=== PATIENT | female | born 1970 | race Caucasian/White ===

== ENCOUNTER 2021-01-28 17:25 | Inpatient (IN) | payer OTHER ==
[~2021-01-28] VITALS: Ht 180.3 cm; Wt 89.8 kg
[2021-01-28 21:45] VITALS: BP 156/94
--- NOTE | 2021-01-28 22:00 | NUR ---
RECIEVED PT FROM [facility]. UPON ARRIVAL TO UNIT PT ALERT AND ORIENTED X4 , DATA BASE COMPLETED AND ASSESSMENT COMPLETED. DENIES CHEST PAIN OR SOA. 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 WILL MONITOR BLOOD PRESSURE AND WILL REPORT CHANGES.
[2021-01-29] VITALS: BP 130/62
[2021-01-29 05:07] VITALS: BP 132/70
[2021-01-29 05:34] LABS: HEMATOCRIT 39.4 % (37.0-47.0); HEMOGLOBIN 12.6 gm/dL (12.0-15.0); MCV 78.2 fL (80.0-100.0); RBC 5.04 mil/uL (4.20-5.00); RDW 15.3 % (10.5-14.5); WBC 16.2 thou/uL (4.0-11.0)
[2021-01-29 05:58] LABS: ANION GAP 12 mmol/L (7-16); BUN 16 mg/dL (7-18); CALCIUM 8.5 mg/dL (8.5-10.1); CHLORIDE 105 mmol/L (98-107); CHOLESTEROL 208 mg/dL (<200); CO2 23 mmol/L (21-32); GLUCOSE 203 mg/dL (74-106); HDL CHOLESTEROL 44 mg/dL (>40); LDL CHOLESTEROL 149 mg/dL (<100); POTASSIUM 3.8 mmol/L (3.5-5.1); SODIUM 140 mmol/L (136-145); TC:HDL 4.7 Ratio (Not establshd); TRIGLYCERIDE 75 mg/dL (<150); VLDL 15 mg/dL (<40)
[2021-01-29 07:30] VITALS: BP 137/74
[2021-01-29 11:55] VITALS: BP 120/66
[2021-01-29 12:30] VITALS: BP 141/75
--- NOTE | 2021-01-29 16:30 | NUR ---
PT ALERT AND ORIENTED TIMES FOUR. VSS, SR ON TELE. PT DENIES PAIN/SOA. PT TOLERATES MEDS AND MEALS. PT UP AB MIKE WITH STEADY GAIT. STRESS ECHO ORDERED FOR TOMORROW. PT AT BEDSIDE. WILL CONTINUE TO MONITOR.
[2021-01-29 18:51] LABS: URINE BILIRUBIN NEGATIVE (Negative); URINE BLOOD NEGATIVE (Negative); URINE CLARITY CLEAR; URINE COLOR YELLOW; URINE GLUCOSE-RANDOM* 3+ (Negative); URINE KETONES TRACE (Negative); URINE LEUKOCYTES-REFLEX NEGATIVE (Negative); URINE NITRITE-REFLEX NEGATIVE (Negative); URINE PROTEIN (DIPSTICK) NEGATIVE (Negative); URINE UROBILINOGEN 0.2 E.U./dl (0.2-1.0)
[2021-01-29 19:39] VITALS: BP 153/76
[2021-01-30 02:05] LABS: GLYCOHEMOGLOBIN (HGB A1C) 6.6 % (4.8-5.6)
[2021-01-30 04:02] VITALS: BP 168/96
[2021-01-30 07:47] VITALS: BP 151/97
[2021-01-30 08:07] LABS: HEMATOCRIT 40.6 % (37.0-47.0); HEMOGLOBIN 12.8 gm/dL (12.0-15.0); MCH 24.6 pg (26.0-34.0); MCHC 31.6 g/dL (28.0-37.0); MCV 77.9 fL (80.0-100.0); RBC 5.21 mil/uL (4.20-5.00); RDW 15.7 % (10.5-14.5)
[2021-01-30 08:26] LABS: CALCIUM 8.5 mg/dL (8.5-10.1); CREATININE 0.8 mg/dL (0.6-1.0); MAGNESIUM 2.3 mg/dL (1.8-2.4); POTASSIUM 3.8 mmol/L (3.5-5.1)
[2021-01-30 11:25] VITALS: BP 134/80
[2021-01-30 11:40] VITALS: BP 134/80
--- NOTE | 2021-01-30 12:11 | NUR ---
Met with patient who admits with CP. patient resides at home with family. 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 Patient does not have insurance. She resides in [facility]. She reports she does have a PCP for f/u care. Dago met with patient. Patient reports they are working on medicaid application.
--- NOTE | 2021-01-30 12:50 | EXE ---
[facility] [place] [address] STRESS ECHOCARDIOGRAM Name: WALI BARRIOS Room #: 206-P [facility] M.R.#: [id number] Admission: 01/28/21 Attend Phys: Boogie Brower MD Discharge: Date of : 68 Report #: [id number] THIS REPORT FOR: cc: FAM - No family physician/PCP FAM - No family physician/PCP Dangelo Sarabia MD ~ APPROVED REPORT Study performed: 01/30/2021 10:11:26 Exam: Stress Echocardiogram Indication: Dyspnea Patient Location: In-Patient Stress Nurse: Apryl Nichols RN Room #: 206 Status: routine Ht: 70 ft 0 in HR: 93 bpm BP: 158/96 mmHg Rhythm: NSR Medical History Cardiac Risk Factors: HTN, Smoking Exercise History: Physically active Procedure The patient underwent an Exercise Stress Test using the Jaime Protocol. Blood pressure, heart rate, and EKG were monitored. An Echocardiogram was performed by biometrics technician in four stages in quad fashion. At peak stress, four selected images were obtained and placed side by side with resting images for comparison. Stress Test Details Stress Test: Exercise stress testing was performed using a Jaime protocol. HR Resting HR: 93 bpm Max Heart Rate (APMHR): 168 bpm Max HR Achieved: 139 bpm Target HR (85% APMHR): 142 bpm % of APMHR: 82 Recovery HR: 99 bpm HR response to stress: Normal HR response to stress BP Resting BP: 158/96 mmHg [facility] [address] [place] [address] STRESS ECHOCARDIOGRAM Name: WALI BARRIOS Room #: 206-P [facility] IN M.R.#: [id number] Admission: 01/28/21 Attend Phys: Boogie Brower, Discharge: Date of : 68 Report #: [id number] Max BP: 170/86 mmHg Recovery BP: 130/76 mmHg BP response to stress: Normal blood pressure response to stress. ECG Resting ECG: Sinus Rhythm Stress ECG: Sinus Tachycardia ST Change: None Recovery ECG: Sinus Rhythm Recovery ST Change: None Clinical Reason for Termination: Maximal effort Exercise duration: 9 min sec Highest Stage Achieved: Stage 3: 3.4 mph at 14% grade. Exercise capacity: 10.4 METs Overall Exercise Capacity for Age: Good Stress ECG Conclusion 1. Subjectively negative for ischemia 2. Echocardiographically negative for ischemia 3. Satisfactory functional capacity 4. No exercise-induced arrhythmias Pre-Stress Echo The resting Echocardiogram showed normal left ventricular contractility with an estimated Ejection Fraction of about >55%. The resting echocardiogram demonstrated normal wall motion in all wall segments. Post-Stress Echo The stress Echocardiogram showed normal left ventricular contractility with an estimated Ejection Fraction of about 65-70%. Compared to rest, there were no stress-induced wall motion abnormalities. Conclusion Clinical Response: Non-ischemic Exercise Capacity: Average Stress ECG Response: Non-ischemic Stress Echo Images: Non-ischemic 1. Low ischemic risk study No prior study available for comparison. Other Information Study Quality: [facility] [address] [place] [address] STRESS ECHOCARDIOGRAM Name: WALI BARRIOS Room #: 206-P ADM IN M.R.#: [id number] Admission: 01/28/21 Attend Phys: Boogie rBower, Discharge: Date of : 68 Report #: [id number] <Conclusion> 1. Low ischemic risk study <ELECTRONICALLY SIGNED> By: Dangelo Sarabia MD 01/30/21 1250 125 1250 Dangelo Sarabia MD /INF
[2021-01-30 15:13] VITALS: BP 168/96
[2021-01-30 16:20] LABS: HEMATOCRIT 40.1 % (37.0-47.0); HEMOGLOBIN 12.9 gm/dL (12.0-15.0); MCH 25.3 pg (26.0-34.0); MCHC 32.1 g/dL (28.0-37.0); MCV 78.9 fL (80.0-100.0); PLATELET COUNT 330 thou/uL (150-400); RBC 5.07 mil/uL (4.20-5.00); RDW 15.6 % (10.5-14.5); WBC 21.7 thou/uL (4.0-11.0)
--- NOTE | 2021-01-30 16:39 | NUR ---
RM ASSUMED PT'S CARE AT 0700AM, PT IS A&OX4, PT'S VS ARE STABLE, PT HAS STRESS TEST DONE TODAY, PT GETS UP TO BATH ROOM BY HERSELF, PT DENIES CHEST PAIN AND SOB, RN HAS CALLED TO REPORT PT'S WBC 27 AT 08OOAM, PT REQUESTS TO GO HOME TODAY, RECHECK WBC 21.7 AT 1600PM, RN HAS CALLED DR TO REPORT LAB RESULT , WILL DC PT TO HOME TODAY.
[2021-01-30] MEDS ORDERED: LOPRESSOR50 PO (16:40)
[2021-01-30] MEDS ORDERED: NORVASC5 MG PO (16:40)
[2021-01-30 16:51] LABS: ABSOLUTE NEUTROPHILS 16.5 thou/uL (1.4-8.2)
[2021-01-30 17:04] VITALS: BP 168/96
--- NOTE | 2021-01-30 18:16 | NUR ---
PT AND PT'S FAMILY UNDERSTANDED DC TEACHING WELL , PT WAS GOING HOME WITH FAMNASIMA AT 1720PM.
== END 2021-01-30 17:26 | disposition home or self-care (01) | DRG 281 ==
LOC: 2N 17:25
PROVIDERS: Nurse Practitioner Family; ADMIT Internal Medicine; ATTEND Internal Medicine
DX: I21.4 Non-ST elevation (NSTEMI) myocardial infarction (principal); R04.2 Hemoptysis; I16.0 Hypertensive urgency; J44.9 Chronic obstructive pulmonary disease, unspecified; F17.210 Nicotine dependence, cigarettes, uncomplicated; I10 Essential (primary) hypertension; K21.9 Gastro-esophageal reflux disease without esophagitis; Z90.49 Acquired absence of other specified parts of digestive tract; Z71.6 Tobacco abuse counseling
CPT/HCPCS: 10081

== ENCOUNTER 2021-09-29 06:42 | Inpatient (IN) | payer OTHER ==
[2021-09-29] VITALS (32 sets, daily range): BP systolic 99–169; BP diastolic 52–140
[~2021-09-29 06:42] MED LIST: LOPRESSOR50 PO; NORVASC5 MG PO
--- NOTE | 2021-09-29 09:34 | EKG ---
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
[2021-09-29 09:43] LABS: CHOLESTEROL 133 mg/dL (<200); HDL CHOLESTEROL 35 mg/dL (>40); LDL CHOLESTEROL 50 mg/dL (<100); TC:HDL 3.8 Ratio (Not establshd); TRIGLYCERIDE 242 mg/dL (<150); VLDL 48 mg/dL (<40)
--- NOTE | 2021-09-29 10:48 | 2DMMODE ---
[address] [place] [address] 2 D/M-MODE ECHOCARDIOGRAM Name: WALI BARRIOS Room #: 212-P ADM IN M.R.#: [id number] Admission: 09/29/21 Attend Phys: Nik De La Rosa MD Discharge: Date of : 68 Report #: [id number] THIS REPORT FOR: cc: WEN - No family physician/PCP WEN - No family physician/PCP Dangelo Sarabia MD ~ APPROVED REPORT Study performed: 09/29/2021 10:07:37 EXAM: Comprehensive 2D, Doppler, and color-flow Echocardiogram Patient Location: In-Patient Room #: 212 Status: stat BSA: 2.07 HR: 96 bpm BP: 135/81 mmHg Rhythm: NSR Other Information Study Quality: Adequate Indications Dyspnea Chemo 2D Dimensions IVSd: 14.86 (7-11mm) LVOT Diam: 24.85 (18-24mm) LVDd: 64.53 mm PWd: 14.83 (7-11mm) Ascending Ao: 35.86 (22-36mm) LVDs: 53.26 (25-40mm) Left Atrium: 46.70 (27-40mm) Aortic Root: 29.26 mm Volumes Left Atrial Volume (Systole) Single Plane 4CH: 67.65 mL Single Plane 2CH: 67.72 mL Biplane LA Volume: 81.00 mL LA ESV Index: 39.00 mL/m2 Aortic Valve AoV Peak Gagan.: 1.10 m/s AO Peak Gr.: 4.86 mmHg LVOT Max P.13 mmHg LVOT Max V: 0.53 m/s MACEY Vmax: 2.34 cm2 [address] [place] [address] 2 D/M-MODE ECHOCARDIOGRAM Name: WALI BARRIOS Room #: 212-P [facility] IN .R.#: [id number] Admission: 09/29/21 Attend Phys: Nik De La Rosa MD Discharge: Date of : 68 Report #: [id number] AI Vmax: 2.84 m/s AI Acadia: 1.63 m/s2 AI PHT: 504.95 ms Mitral Valve E/A Ratio: 140.0 MV Decel. Time: 22.98 ms MV E Max Gagan.: 1.40 m/s MV A Gagan.: 0.01 m/s MV PHT: 6.66 ms IVRT: 73.82 ms Pulmonary Valve PV Peak Gagan.: 0.69 m/s PV Peak Gr.: 1.92 mmHg Tricuspid Valve TR Peak Gagan.: 3.58 m/s RAP Estimate: 7.00 mmHg TR Peak Gr.: 51.27 mmHg RVSP: 58.00 mmHg Left Ventricle Left ventricle is dilated. There is global hypokinesis of the left ventricle. Regional wall motion abnormalities are noted. Moderate concentric left ventricular hypertrophy. Left ventricular systolic function is severely decreased. LVEF is 15-20%. Severe diastolic dysfunction is present (restrictive filling). Right Ventricle The right ventricle is normal size. Right ventricle is mildly hypokinetic. Atria Left atrium is mildly dilated. The right atrium size is normal. Aortic Valve Aortic valve is trileaflet. Mild aortic regurgitation. There is no aortic valvular stenosis. Mitral Valve The mitral valve is normal in structure. Mild mitral regurgitation. No evidence of mitral valve stenosis. Tricuspid Valve The tricuspid valve is normal in structure. Mild to moderate tricuspid regurgitation. PAP [address] [place] [address] 2 D/M-MODE ECHOCARDIOGRAM Name: WALI BARRIOS Room #: 212-P ADM IN M.R.#: [id number] Admission: 09/29/21 Attend Phys: Nik De La Rosa MD Discharge: Date of : 68 Report #: [id number] Pulmonic Valve The pulmonary valve is normal in structure. There is no pulmonic valvular regurgitation. Great Vessels The aortic root is normal in size. IVC is normal in size and collapses <50% with inspiration. Pericardium There is no pericardial effusion. Small right pleural effusion. <Conclusion> Left ventricle is dilated. Moderate concentric left ventricular hypertrophy. There is global hypokinesis of the left ventricle. Regional wall motion abnormalities are noted. LVEF is 15-20%. The right ventricle is normal size. Aortic valve is trileaflet. Mild aortic regurgitation. The mitral valve is normal in structure. Mild mitral regurgitation. The tricuspid valve is normal in structure. Mild to moderate tricuspid regurgitation. PAP 58 mmHg The pulmonary valve is normal in structure. The aortic root is normal in size. There is no pericardial effusion. <ELECTRONICALLY SIGNED> By: Dangelo Sarabia MD 09/29/21 1048 1048 1048 Dangelo Sarabia MD /INF
[2021-09-29 11:01] LABS: CALCIUM 8.3 mg/dL (8.5-10.1); CREATININE 0.8 mg/dL (0.6-1.0); POTASSIUM 3.8 mmol/L (3.5-5.1)
[2021-09-29 11:02] LABS: APTT 30.9 Seconds (24.5-32.8); PROTIME 10.9 Seconds (10.5-12.1)
--- NOTE | 2021-09-29 11:57 | NUR ---
pt arrived from [facility] at 0700. pt reports intermittent soa and soa with exertion; placed pt on oxygen at 3 L NC. pt restless at times due to the SOA. pt denies chest pain at this time; telemetry indicates ST elevation; admit for NSTEMI. cardiology consulted and plan to complete cardiac cath procedure today. heparin gtt restarted; second nurse verified and intervention added. pt c/o headache; admin prn pain med with ice pack. denies any other needs at this time. fall precautions in place and call light within reach.
--- NOTE | 2021-09-29 12:37 | NUR ---
PATIENT ADMITTED FOR NSTEMI. CHART REVIEWED AND DISCUSSED WITH CARE TEAM. CM MET WITH PT THIS DAY. CM ROLE INTRODUCED. PT REPORTS SHE LIVES AT HOME WITH SPOUSE DALILA [phone]. PT REPORTS SHE IS INDEP WITH ADLS AND MOBILITY. DENIES HH/SNF/REHAB IN THE PAST. PT REPORTS HER PCP IS DIMAS RAJI. PT DENIES USE OF HOME OXYGEN. PT SOA AND CM DID NOT PROCEED WITH ASSESSMENT. PT GETTING HEART CATH THIS AM. PT SCREED BY [employer] [facility] FOR MEDICAID APPLICATION. THEY WILL SCREEN FOR DISABILITY WELL. NO FURTHER CM INTERVENTIONS INDICATED AT THIS TIME.
--- NOTE | 2021-09-29 15:50 | NUR ---
PT BROUGHT TO [facility] AT 11AM FOR HEART CATH. 1230 DR MUÑOZ STATES CATH IS CANCELED AND ASKS US TO ORDER ICU BED. STATES HE WILL ORDER LASIX AND DOBUTAMINE. O2 STARTED AT 2L NC 1233 TYLENOL 650 MG GIVEN FOR HEADACHE. 1246 LASIX 40 MG IV GIVEN 1405 DOBUTAMINE STARTED AT 2MCG/KG/MIN 1420 DOBUTAMINE INCREASED TO 4MCG/KG/MIN PT FEELING SO MUCH BETTER. WAS SOA AND RESTLESS UPON ARRIVAL TO [facility]. NOW RESTING COMFORTABLY. ATE SOME LUNCH. PT HAS VOIDED 1325 CCS URINE SINCE LASIX GIVEN. FEELING GOOD. NOT SOA REPORT TO RASHAWN IN ICU. TRANSFER TO ICU AT 1550 PER RN. VSS. SEE VS FLOW SHEET RES
--- NOTE | 2021-09-29 17:32 | NUR ---
CALLED AND TALKED WITH DOCTOR ELIAS ABOUT DOPAMINE DRIP YES GO TO 5, HEPARIN DRIP WAS D/SKY.
[2021-09-30] VITALS (21 sets, daily range): BP systolic 106–159; BP diastolic 51–108
[2021-09-30 03:35] LABS: HEMATOCRIT 36.9 % (37.0-47.0); HEMOGLOBIN 11.4 gm/dL (12.0-15.0); MCH 22.9 pg (26.0-34.0); RBC 4.99 mil/uL (4.20-5.00); RDW 16.6 % (10.5-14.5); WBC 9.1 thou/uL (4.0-11.0)
[2021-09-30 05:34] LABS: CREATININE 0.9 mg/dL (0.6-1.0); POTASSIUM 3.4 mmol/L (3.5-5.1)
--- NOTE | 2021-09-30 14:12 | NUR ---
PT PROGRESSING TOWARD GOALS. PT HAS BEEN OFF DOBUTAMINE GTT SINCE 1000 THIS SHIFT. PT HAS BEEN TOLERATING MEALS WELL. PT HAS BEEN GETTING LASIX FOR DIURESIS. OUTPUT HAS BEEN GOOD THIS SHIFT AND VITALS ARE STABLE. PT HAS STATED THAT SHE FEELS MUCH BETTER TODAY AND SAID SHE FEELS LIKE SHE COULD "RUN A MARATHON." PT HAS HAD HER SIBLINGS SWITCHING OUT AT BEDSIDE TO VISIT WITH HER. PT APPEARS WELL RESTED AND ENERGETIC. PT HAS DENIED ANY PAIN OR DISCOMFORT THROUGHOUT THE SHIFT. PT IS MOVING FROM ICU TO CCU BED 206. RN TO MONITOR PT AND FOLLOW POC.
--- NOTE | 2021-09-30 17:43 | NUR ---
Received pt to room 206 from ICU approx. 1600. Pt on RA, A&O x4, SR w/ BBB on the monitor. Pt denying any current chest pain. Pt wanting to shower, permission received from Dr. Felix to remove tele for shower. Pt informed. Pt w/ no complaints of pain at this time.
[2021-10-01 03:49] VITALS: BP 149/100
--- NOTE | 2021-10-01 04:19 | NUR ---
PT ALERT AND ORIENTED X4; MOVES ALL EXTREMITIES AND FOLLOWS ALL COMMANDS. UAL IN ROOM, GAIT STEADY. BP AT 0400 = 149/100. PT DENIES CP, HEADACHE OR BLURRED VISION. CURRENTLY RESTING WITH EYES CLOSED, RESP EVEN AND NON LABORED. ALL VS AND ASSESSMENTS CHARTED, WILL CONTINUE TO MONITOR.
[2021-10-01 05:41] LABS: CALCIUM 8.4 mg/dL (8.5-10.1); MAGNESIUM 2.4 mg/dL (1.8-2.4); POTASSIUM 4.5 mmol/L (3.5-5.1)
[2021-10-01 08:59] VITALS: BP 152/83
[2021-10-01 16:05] VITALS: BP 142/100
[2021-10-01 20:00] VITALS: BP 127/72
[2021-10-02] VITALS (14 sets, daily range): BP systolic 110–155; BP diastolic 67–109
--- NOTE | 2021-10-02 03:18 | NUR ---
NURSE NOTE: SHIFT SUMMARY: PT ALERT AND ORIENTED X4, MOVES ALL EXTREMITIES AND FOLLOWS COMMANDS. PT NPO AFTER MIDNIGHT FOR POSSIBLE HEART CATH IN THE MORNING. DENIES PAIN OR DISCOMFORT THIS SHIFT. CURRENTLY RESITNG WITH EYES CLOSED, RESP EVEN AND NON LABORED. ALL VS AND ASSESSMENTS CHARTED. WILL CONTINUE TO MONITOR.
[2021-10-02 04:53] LABS: CALCIUM 8.5 mg/dL (8.5-10.1); POTASSIUM 4.3 mmol/L (3.5-5.1)
--- NOTE | 2021-10-02 13:25 | NUR ---
Assumed care of pt this AM. Pt is A&O x4, on RA. SR w/ BBB on the monitor. Pt denies any pain. NPO since midnight for cardiac cath today. Some anxiety regarding upcoming procedure, which was discussed w/ pt. Family visiting throughout day. BB held this AM for procedure. Pt up ad yaw in room. Pt currently off unit for procedure.
--- NOTE | 2021-10-02 16:07 | NUR ---
CHART REVIEWED AND DISCUSSED WITH CARE TEAM. CM MET WITH PT THIS DAY. PT REPORTS SHE HAS NO NEEDS ONCE MEDICALLY STABLE TO DC. PT ON ROOM AIR. CM FOLLOWING SHOULD DC NEEDS CHANGE.
[2021-10-03 00:45] VITALS: BP 121/82
--- NOTE | 2021-10-03 04:42 | NUR ---
PT UP ADLIB IN ROOM AND BR HR INCREASES WITH ACTIVITY TO 150-160, OTHERWISE VSS, RIGHT GROIN REMAINS CDI, PT HOPES TO GO HOME TODAY, WILL CON'T TO MONITOR PER PPOC.
[2021-10-03 04:45] VITALS: BP 130/91
[2021-10-03 07:30] VITALS: BP 130/83
[2021-10-03] MEDS ORDERED: BENICAR40 MG PO (10:28)
[2021-10-03] MEDS ORDERED: TORSEMIDE20 MG PO (10:28)
[2021-10-03] MEDS ORDERED: CARVEDILOL12.5 MG PO (10:28)
[2021-10-03] MEDS ORDERED: ALDACTONE50 MG PO (10:28)
[2021-10-03 12:31] VITALS: BP 130/83
--- NOTE | 2021-10-03 14:56 | NUR ---
CM MET WITH PT THIS DAY. PT INQUIRING ABOUT FINANCIAL ASSISTANCE. PT GIVEN PHONE NUMBER FOR [facility]. PT REPORTED SHE HAS ALREADY CALLED THEM AND HAS BEEN APPROVED. PT REQUEST TO SPEAK WITH MINERVA FROM [employer] REGARDING MEDICAID [place]. SHELLEY HAS ALREADY BEEN STARTED. CM INQUIRED IF PT WILL NEED ASSISTANCE WITH MEDS ONCE MEDICALLY STABLE TO DC. PT INFORMED CM THAT SHOULD NOT BE AN ISSUE. PT REQUIRING A LIFE VEST PRIOR TO DC EF LESS THAT 15%. NURSING INFORMED PARESH FIELDS WITH [employer] IS AWARE AND PROVIDING VEST YOHANA. THAT TYPICALLY TAKES LONGER TO PROVIDE HOWEVER, DONNIE INFORMED NURSING HE WILL TRY TO GET IT COMPLETE AND A LIFE VEST TO PT THIS DAY. PT AWARE HAS TO WAIT FOR VEST TO DC. CM WILL CONTINUE TO FOLLOW FOR DC PLANNING.
--- NOTE | 2021-10-03 16:24 | NUR ---
CM MET WITH PT THIS DAY. PTS DAUGHTER AT BEDSIDE. PT REPORTED DONNIE WITH [employer] [facility] INDICATED SHE WOULD HAVE TO PAY $500 RECEIVE VEST AND SHE CANNOT AFFORD IT. CM CALLED CARDIOLOGY OFFICE AND SPOKE WITH MEET. MEET INDICATED SHE WOULD SPEAK WITH DR SOUTH AND DONNIE WITH [employer] [facility] AND CALL CM BACK. MEET CALLED AND INFORMED CM PT DAUGHTER AGREEABLE TO PAY $250 UP FRONT. [facility] COMING THIS EVENING TO DELIVER VEST AND COLLECT PAYMENT THEREFORE PT CAN DC HOME. MEET INFORMED CM THE [facility] WILL COVER THE REST OF THE COST. SHOULD PT NOT PAY $250 AGREED, PER MEET, DR SOUTH SAID OK FOR PT TO DC THIS EVENING; IF MONEY IF THE ISSUE PT WILL NOT HAVE IT TONIGHT OR TOMORROW. NURSING AWARE AND PT AWARE OF PLAN. NO FURTHER CM INTERVENTIONS INDICATED AT THIS TIME.
[2021-10-03 17:00] VITALS: BP 127/79
--- NOTE | 2021-10-12 00:45 | CATHLAB ---
[facility] [place] [address] INVASIVE PROCEDURE REPORT Name: KATJA BARRIOS Room #: 206-P DIS IN M.R.#: [id number] Admission: 09/29/21 Attend Phys: Gabe Felix MD Discharge: 10/03/21 Date of : 68 Report #: [id number] THIS REPORT FOR: cc: WEN - No family physician/PCP FAM - No family physician/PCP Dangelo Sarabia MD ~ APPROVED REPORT Study performed: 10/02/2021 13:14:14 Patient Details Patient Status: In-Patient Room #: The patient is a 51 year-old female Event Personnel Dangelo Sarabia Line Service Supervisor, Josie Bautista RN RN, Hira Good RN RN, Katja Alexandra RTR, SARA Scrub, Lexy Marques Monitor Procedures Performed Art Access - R femoral artery* Jacob Access - L femoral vein Right and Left Heart Cath w/or w/o Coronarie [id number] [facility] 12523 Initial Mod Sed Same Phys/QHP Gr5y [id number] 76554 Mod Sed Same Phys/QHP Ea [id number] Hemostasis with Manual pressure, supervision of conscious sedation Indication Heart failure, Cardiomyopathy, Chest pain Procedure Narrative The Right Groin^ was infiltrated with 1% Lidocaine subcutaneous anesthesia. A PINNACLE 4FR Sheath #[id number] sheath was inserted into the RFA 4F^. Coronary angiography was performed using coronary diagnostic catheters. The right coronary system was accessed and visualized with a JR4 catheter. The left coronary system was accessed and visualized with a JL4 catheter. The left ventricle was accessed and visualized with a ANGLE PIG catheter. Hemostasis was obtained with manual pressure following sheath removal without any complications. There was no hematoma. Intraoperative Conscious Sedation Sedation start time: 1340 Case end Time: 1432 Versed 3 mg [facility] [employer] [place] [address] INVASIVE PROCEDURE REPORT Name: KATJA BARRIOS Room #: [address] [place] [address] IN ..#: [id number] Admission: 09/29/21 Attend Phys: Gabe Felix MD Discharge: 10/03/21 Date of : 68 Report #: [id number] Fluoro Time: 6.70 minutes Dose: DAP 7026.80 cGycm2 952 mGy Contrast Type and Amount: Omnipaque 60 ml Coronary Angiography The patient's coronary anatomy is co- dominant. Diagnostic Cath Left Main Large caliber vessel of normal origin bifurcates into left anterior descending and left circumflex arteries no significant plaqueing was present LAD small caliber type II vessel with mild to moderate irregularities in its proximal course. it then tapers rapidly to the apex as it gives rise to septal and diagonal branches Diagonal 1 small claiber nonobstructive vessel coursing in the anterolateral wall but a proximal narrowing of 25-30% Diagonal 2 small caliber artery with a mild proximal lesion otherwise no obstructive lesions Circumflex Large caliber codominant artery gives rise to an early small marginal vs ramus branch. it then continues in av groove giving rise to diminuitive second diagonal and proceeding to posterior left ventricle where posterior wall branch and co pda arise without high grade lesions OM1 small caliber without significant lesions OM2 dimiuitive vessel OM3 moderate caliber with luminali irregularities L PDA small to moderate rapidly tapering towards apex Right Coronary Large caliber vessel of normal origins with proximal irregularities of less than 30%. The rca continues to the crux of the heart where a small rpda arises cousing towards the apex. R PDA small caliber without significant lesions Left Ventriculography Left Ventriculography was not performed. Hemodynamics The right atrial mean pressure is 7 mmHg. The right ventricular pressure is 30/3 mmHg. The pulmonary artery pressure is 31/12 mmHg with a mean of 21 mmHg. The mean pulmonary capillary wedge pressure is 9 mmHg. The aortic pressure is 130/95 mmHg with a mean of 84 mmHg. The left ventricular pressure is 151/15 mmHg with a mean of mmHg. The left ventricular end diastolic pressure is 31 mmHg. Conclusion 1. Coronary Artery Diease mild without obstructive lesions [facility] [address] [place] [address] INVASIVE PROCEDURE REPORT Name: KATJA BARRIOS Room #: 206-P DIS IN M.R.#: [id number] Admission: 09/29/21 Attend Phys: Gabe Felix MD Discharge: 10/03/21 Date of : 68 Report #: [id number] 2. Abnormal hemodynamics with elevated LVEDP 3. Right heart catherization a. satifactory co/ci b. no significant elevation of intracardiac pressures Recommendations Cardiac Risk Reduction Program Medical Therapy <ELECTRONICALLY SIGNED> By: Dangelo Sarabia MD 10/12/2144 Dangelo Sarabia MD /INF
== END 2021-10-03 18:24 | disposition home or self-care (01) | DRG 280 ==
LOC: 2N 06:42 → ICU 07:44 → 2N 07:44 → ICU 08:18 → 2N 09-30 14:46
PROVIDERS: Internal Medicine; Nurse Practitioner; ADMIT Hospitalist; ATTEND Hospitalist
DX: I21.4 Non-ST elevation (NSTEMI) myocardial infarction (principal); I50.23 Acute on chronic systolic (congestive) heart failure; I42.8 Other cardiomyopathies; I11.0 Hypertensive heart disease with heart failure; Z88.8 Allergy status to other drugs, medicaments and biological substances; Z20.822 Contact with and (suspected) exposure to COVID-19; E78.5 Hyperlipidemia, unspecified; Z87.891 Personal history of nicotine dependence
CPT/HCPCS: 10081; 10203